=== PATIENT | female | born 1990 | race Hispanic/Latino ===

== ENCOUNTER 2018-06-06 08:43 | Inpatient (IN) | payer MEDICAID, OTHER, SELFPAY ==
[2018-06-06] MEDS ORDERED: Butorphanol Tartrate 1 MG/ML VIAL SLOW IVP PRN (09:27)
[2018-06-06] MEDS ORDERED: NS / Oxytocin 40 units/1000ml 1,000 ML IV PRN (09:27)
[2018-06-06] MEDS ORDERED: Acetaminophen 500 MG TAB PO PRN (09:27)
[2018-06-06] MEDS ORDERED: HYDROcodone/Acetaminophen 5/325 mg Tablet PO PRN ×4 (09:27→13:00)
[2018-06-06] MEDS ORDERED: Ibuprofen 800 MG TAB PO PRN (09:27)
[2018-06-06] MEDS ORDERED: Promethazine HCl 25 MG/ML VIAL IM PRN (09:27)
[2018-06-06] MEDS ORDERED: Meperidine HCl/PF 25 MG/ML VIAL IM/IV PRN (09:27)
[2018-06-06] MEDS ORDERED: Lidocaine 1% (PF) 30 ML VIAL SC PRN (09:27)
[2018-06-06] MEDS ORDERED: Ondansetron PF 4 MG/2 ML Vial IVP PRN ×2 (09:27→13:00)
[2018-06-06] MEDS ORDERED: Zolpidem Tartrate 5 MG TAB PO PRN (09:27)
[2018-06-06] MEDS ORDERED: NS w/ Oxytocin 10 units 500 ML IV SCH (09:30)
[2018-06-06] MEDS ORDERED: Lactated Ringer's 1,000 ML IV SCH ×2 (09:30)
[2018-06-06 09:40] VITALS: BMI 31.6
[2018-06-06 09:55] LABS: Hemoglobin 12.6 g/dL (12.0-16.0); Mean Corpuscular HGB CONC 34.2 g/dL (32.0-36.0); Mean Corpuscular Hemoglobin 29.9 pg (27.0-31.0); Mean Corpuscular Volume 87.5 fL (78.0-98.0); Mean Platelet Volume 7.8 fL (7.4-10.4); Platelet Count 244 thou/uL (130-400); RBC Distribution Width 12.7 % (11.5-14.5); Red Blood Cell (RBC) Count 4.21 mill/uL (4.20-5.40); White Blood Cell (WBC) Count 10.8 thou/uL (4.8-10.8)
[2018-06-06] MEDS ORDERED: Lidocaine 1% (PF) 30 ML VIAL ONE (10:09)
[2018-06-06 10:31] LABS: HBSAg Index 0.21 S/CO (0-0.99); Hep B Surf Ag Non-Reactive S/CO (NonReactive)
[2018-06-06 10:32] LABS: Syphilis Antibody Nonreactive (Nonreactive); Syphilis Antibody Index 0.04 S/CO (<1.00 Non-Reactive)
[2018-06-06] MEDS: NS / Oxytocin 40 units/1000ml 1,000 ML ONE ×2 (11:40→14:17)
[2018-06-06] MEDS ORDERED: Milk Of Magnesia 30 ML UDCUP PO PRN (13:00)
[2018-06-06] MEDS ORDERED: Lanolin Ointment 7 GM TUBE TOP PRN (13:00)
[2018-06-06] MEDS ORDERED: Adacel (T-DAP) 0.5 ML SYRINGE IM ONE (13:00)
[2018-06-06] MEDS ORDERED: diphenhydrAMINE 25 MG CAP PO PRN (13:00)
[2018-06-06] MEDS ORDERED: NS / Oxytocin 40 units/1000ml 1,000 ML IV SCH (13:00)
[2018-06-06] MEDS ORDERED: Bisacodyl 10 MG SUPP PR PRN (13:00)
[2018-06-06] MEDS: Ibuprofen 800 MG TAB PO SCH ×2 (14:25→21:08)
[2018-06-06] MEDS: Ferrous Sulfate 325 MG TAB PO SCH (15:49)
[2018-06-06] MEDS: Docusate Calcium (SURFAK) 240 MG CAP PO SCH (21:08)
[2018-06-07] MEDS: Ibuprofen 800 MG TAB PO SCH (04:47)
[2018-06-07 06:27] LABS: Hemoglobin 11.3 g/dL (12.0-16.0); Mean Corpuscular HGB CONC 34.1 g/dL (32.0-36.0); Mean Corpuscular Hemoglobin 29.8 pg (27.0-31.0); Mean Corpuscular Volume 87.4 fL (78.0-98.0); Mean Platelet Volume 7.2 fL (7.4-10.4); Platelet Count 250 thou/uL (130-400); RBC Distribution Width 12.7 % (11.5-14.5); Red Blood Cell (RBC) Count 3.79 mill/uL (4.20-5.40); White Blood Cell (WBC) Count 12.4 thou/uL (4.8-10.8)
[2018-06-07] MEDS: Ferrous Sulfate 325 MG TAB PO SCH (07:14)
[2018-06-07 08:22] VITALS: BP 120/75; TEMP 98.2
[2018-06-07] MEDS ORDERED: Prenatal Vitamin 1 TAB PO SCH (09:00)
[2018-06-07] MEDS: Docusate Calcium (SURFAK) 240 MG CAP PO SCH (09:23)
== END 2018-06-07 14:20 | disposition home or self-care (01) | DRG 807 ==
LOC: L&D/OP 08:43 → L&D 11:03 → 3SW 14:02
PROVIDERS: ADMIT Family Medicine; ATTEND Family Medicine
PROC: 10E0XZZ Delivery of Products of Conception, External Approach (ICD-10-PCS; principal; 2018-06-06)
PROC: 10907ZC Drainage of Amniotic Fluid, Therapeutic from Products of Conception, Via Natural or Artificial Opening (ICD-10-PCS; 2018-06-06)
DX: O80 Encounter for full-term uncomplicated delivery (principal); Z37.0 Single live birth; Z3A.40 40 weeks gestation of pregnancy
CPT/HCPCS: 36415; 51702; 85027; 86780; 86850; 86900; 86901; 87340; 90715; 99285; J2001